=== PATIENT | female | born 1985 | race Caucasian/White ===

== ENCOUNTER → 2017-12-06 16:07 | Outpatient (CLI) | payer OTHER, SELFPAY ==
[2017-12-06 16:39] LABS: Add Manual Diff / Slide Review NO; Basophils Percent Auto 0.6 % (0-2); Eosinophils Percent Auto 0.9 % (2-4); Hematocrit 40.8 % (36-46); Hemoglobin 14.2 g/dL (12.0-16.0); Lymphocytes Percent Auto 22.6 % (25-40); Mean Corpuscular HGB Conc 34.8 % (30-36); Mean Corpuscular Volume 97.6 fL (80-100); Monocytes Percent Auto 6.4 % (3-14); Neutrophils Absolute Auto 7600 /uL (3000-5900); Neutrophils Percent Auto 69.5 % (50-75); Platelet Count 295 X10^3/uL (150-400); Red Blood Cell Count 4.17 X10^6/uL (4.0-5.2); Red Cell Distribution Width 12.5 % (11.6-14.8); White Blood Cell Count 10.9 X10^3/uL (4.5-11.0)
[2017-12-06 18:11] LABS: HIV 1 and 2 Antibody NEGATIVE (NEGATIVE); Hep C Virus Ab w/Reflex Quant NEGATIVE s/c (NEGATIVE); Hepatitis B Surface Antigen NEGATIVE s/c (NEGATIVE); Rubella Antibody IgG 40.2 IU/mL (>15)
[2017-12-08 14:06] LABS: HSV 2 IGG AB < 0.90 index (< 0.90)
[2017-12-13 10:33] LABS: Rapid Plasma Reagin NON-REACTIVE
== END ==
PROVIDERS: Family Provider Family Medicine; PCP Family Medicine; Visit Provider Obstetrics & Gynecology
DX: Z34.91 Encounter for supervision of normal pregnancy, unspecified, first trimester (principal)
CPT/HCPCS: 36415; 80055; 86695; 86696; 86703; 86787; 86803; 86850; 86900; 86901; 87077; 87086

== ENCOUNTER → 2018-01-05 11:38 | Outpatient (CLI) | payer OTHER, SELFPAY ==
[2018-01-05 16:25] LABS: Urine N gonorrhoeae NOT DETECTED
[2018-01-05 16:35] LABS: Urine Chlamydia NOT DETECTED
== END ==
PROVIDERS: Family Provider Family Medicine; PCP Family Medicine; Visit Provider Obstetrics & Gynecology
DX: Z11.3 Encounter for screening for infections with a predominantly sexual mode of transmission (principal); Z11.8 Encounter for screening for other infectious and parasitic diseases
CPT/HCPCS: 87491; 87591

== ENCOUNTER → 2018-02-02 12:59 | Outpatient (CLI) | payer OTHER, SELFPAY ==
[2018-02-07 14:19] LABS: AFP, Serum 36.4 ng/mL; Calc Gestational Age 17.6; Cigarette Smoker N; Donated Egg NOT GIVEN; Donor Egg Age NOT GIVEN; Estriol, Free 1.03 ng/mL; Inhibin A, Dimeric 92 pg/mL; Maternal Weight 192 lbs; Number of Fetuses NOT GIVEN; Previous Pregnancy Down Syndro NOT GIVEN; hCG, MoM 0.77; hCG, Serum 17.1 IU/mL
== END ==
PROVIDERS: PCP Family Medicine; Visit Provider Obstetrics & Gynecology
DX: Z34.02 Encounter for supervision of normal first pregnancy, second trimester (principal); Z3A.17 17 weeks gestation of pregnancy
CPT/HCPCS: 36415; 82105; 82677; 84702; 86336

== ENCOUNTER → 2018-03-04 12:51 | Outpatient (CLI) | payer OTHER, SELFPAY ==
--- NOTE | 2018-03-04 12:53 | DI.US.S_ITS ---
PROCEDURE: US OB >= 14 WEEKS FETUS INDICATIONS: ANATOMY OUTSIDE/PRIOR DATING DATA: Last menstrual period (LMP): 10/02/17. LMP-based estimated date of delivery (LEVY): 07/09/18 First dating scan (date and location): 12/06/17 Estimated date of delivery (LEVY) from first dating scan: 07/12/18 TECHNIQUE: Real-time scanning was performed of the fetus, with image documentation and biometric measurements. Endovaginal scanning: None COMPARISON: [facility], , OB >= 14 WEEKS FETUS, 02/02/2018, 12:51. FINDINGS: General: A single living intrauterine gestation is present. Presentation: Vertex Placenta: Placental position is anterior, without previa. Amniotic fluid index: 13.3 cm, normal range is 5-24 cm. heart rate: 139 beats per minute. Maternal cervical canal: 3.9 cm long. Normal lower limit is 2.5 cm. Simple cyst is noted in left ovary measures 4.6 x 3.7 x 3.8 cm in size. No adnexal masses seen. Right ovary is within normal limits. biometrics: Biparietal diameter: 5 cm, 21 weeks zero day Head circumference: 18.4 cm, 20 weeks six-day Abdominal circumference: 16.5 cm 21 weeks and 4 day Femur length: 3.5 cm, 21 week one day Estimated gestational age from initial scan: 21 week 3 days Composite gestational age from present scan: 21 weeks zero Estimated weight and percentile: 411 g, 36% Measurement variability for biometric dating: +/- 7 days from 14 weeks to 15 weeks 6 days gestation, +/- 10 days from 16 weeks to 21 weeks 6 days gestation, +/- 2 weeks from 22 weeks to 27 weeks 6 days gestation, +/- 3 weeks for 28 weeks gestation or later. weight reference: 4500 g or EFW >90/95% is considered macrosomia or large for gestational age. EFW <10% is small for gestational age. EFW 5% or less is considered intra-uterine growth restriction. Anatomic survey: Neuro: Ventricles are non-dilated at less than 10 mm. Cisterna magna is normal at 3-11 mm. Cerebellum is normal in size and morphology. Nuchal skin fold: Normal at less than 6 mm between 14-21 weeks gestational age. Face: Nose and lips, facial profile are normal. Spine: No evidence for spina bifida. Heart: 4-chambered heart is present, with normal ventricular outflow tracts. Diaphragm: Diaphragm is intact. Stomach: Left-sided stomach is present. Kidneys: No hydronephrosis. Normal is less than 5 mm in 2nd trimester, less than 7 mm in 3rd trimester. Cord: 3-vessel cord has orthotopic insertion. Bladder: Normal in size. Extremities: All 4 extremities identified. IMPRESSION: 1. Single live intrauterine with fetus in vertex presentation. heart rate is 139 beats per minute. 2. Normal growth. No gross abnormality is seen in anatomy. 3. Simple cyst in left ovary. Dictated by: Kyle Dutta M.D. on 03/04/2018 at 14:36 Approved by: Kyle Dutta M.D. on 03/04/2018 at 14:40
== END ==
PROVIDERS: PCP Family Medicine; Visit Provider Obstetrics & Gynecology
DX: O34.82 Maternal care for other abnormalities of pelvic organs, second trimester (principal); N83.292 Other ovarian cyst, left side; Z36.89 Encounter for other specified antenatal screening; Z3A.21 21 weeks gestation of pregnancy
CPT/HCPCS: 76811

== ENCOUNTER → 2018-03-06 12:31 | Outpatient (CLI) | payer OTHER, SELFPAY ==
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
[2018-03-06 13:06] LABS: Appearance Urine UA CLEAR; Bilirubin Urine UA NEGATIVE (NEGATIVE); Color Urine UA YELLOW; Glucose Urine UA NEGATIVE (Normal); Ketones Urine UA NEGATIVE (NEGATIVE); Leukocyte Esterase Urine UA NEGATIVE (NEGATIVE); Nitrite Urine UA Negative (Negative); Occult Blood Urine UA TRACE-LYSED (Negative); Protein Urine UA NEGATIVE (Negative); Specific Gravity Urine UA <=1.005 (1.000-1.035); Urobilinogen Urine UA 0.2 E.U./dL (0.2)
[2018-03-06 13:12] LABS: Bacteria Urine Moderate (10-30); Culture Indicated Urine Specimen Cultured; RBC Urine 0-1/HPF (0-5/HPF); WBC Urine 0-1/HPF (0-5/HPF)
== END | disposition home or self-care (01) ==
PROVIDERS: PCP Family Medicine; Visit Provider Specialist
DX: Z34.82 Encounter for supervision of other normal pregnancy, second trimester (principal); Z3A.22 22 weeks gestation of pregnancy; O46.92 Antepartum hemorrhage, unspecified, second trimester
CPT/HCPCS: 59025; 81001; 87086; G0378; G0379

== ENCOUNTER → 2018-04-27 12:44 | Outpatient (CLI) | payer OTHER, SELFPAY ==
[2018-04-27 14:38] LABS: Hemoglobin 13.5 g/dL (12.0-16.0)
[2018-04-27 15:15] LABS: GTT (PREG) 1 Hour PP 50gm Dose 133 mg/dL (76-139)
== END ==
PROVIDERS: PCP Family Medicine; Visit Provider Obstetrics & Gynecology
DX: Z34.92 Encounter for supervision of normal pregnancy, unspecified, second trimester (principal)
CPT/HCPCS: 36415; 82950; 85014; 85018

== ENCOUNTER → 2018-06-08 08:45 | Outpatient (CLI) | payer OTHER, SELFPAY ==
[2018-06-09 16:27] LABS: Strep Grp B PCR NEG for Grp B Strep
== END ==
PROVIDERS: PCP Family Medicine; Visit Provider Obstetrics & Gynecology
DX: Z34.03 Encounter for supervision of normal first pregnancy, third trimester (principal)
CPT/HCPCS: 87653

== ENCOUNTER 2018-06-28 10:32 | Outpatient (CLI) | payer OTHER, SELFPAY ==
[2018-06-28 11:03] LABS: Add Manual Diff / Slide Review NO; Basophils Absolute Auto 100 /uL (0-100); Eosinophils Absolute Auto 100 /uL (0-450); Hematocrit 40.6 % (36-46); Lymphocytes Absolute Auto 2300 /uL (1100-4500); Lymphocytes Percent Auto 20.2 % (25-40); Mean Corpuscular HGB Conc 34.5 % (30-36); Mean Corpuscular Hemoglobin 33.6 PG (26-34); Mean Corpuscular Volume 97.4 fL (80-100); Monocytes Absolute Auto 600 /uL (0-900); Monocytes Percent Auto 5.4 % (3-14); Neutrophils Absolute Auto 8200 /uL (1500-7000); Neutrophils Percent Auto 72.4 % (50-75); Platelet Count 280 X10^3/uL (150-400); Red Blood Cell Count 4.17 X10^6/uL (4.0-5.2); Red Cell Distribution Width 12.3 % (11.6-14.8); White Blood Cell Count 11.3 X10^3/uL (4.5-11.0)
[2018-06-28 11:16] LABS: Aspartate Aminotransferase 29 IU/L (14-36); BUN Creatinine Ratio 13.3 (6-22); Blood Urea Nitrogen 8 mg/dL (7-17); Estimated Glomerular Filt Rate > 60.0 mL/min (>60); Uric Acid 3.4 mg/dL (2.5-6.2)
== END 2018-06-28 11:35 | disposition home or self-care (01) ==
LOC: LABOR 11:35 → OB 06-29 16:48
PROVIDERS: PCP Family Medicine; Visit Provider Obstetrics & Gynecology
DX: Z34.03 Encounter for supervision of normal first pregnancy, third trimester (principal); Z3A.38 38 weeks gestation of pregnancy
CPT/HCPCS: 36415; 59025; 84450; 84550; 85025; G0378; G0379

== ENCOUNTER 2018-06-30 11:39 | Outpatient (CLI) | payer OTHER, SELFPAY | END 2018-06-30 12:42 | disposition home or self-care (01) | LOC: LABOR 12:42 → OB 07-01 14:14 | PROVIDERS: PCP Family Medicine; Visit Provider Obstetrics & Gynecology | DX: Z03.71 Encounter for suspected problem with amniotic cavity and membrane ruled out (principal); Z3A.38 38 weeks gestation of pregnancy | CPT/HCPCS: 59025; 84112; G0378; G0379 ==

== ENCOUNTER 2018-07-12 17:43 | Inpatient (IN) | payer OTHER, SELFPAY ==
[2018-07-12] MEDS: miSOPROStol 25 MCG TABLET VAG (18:45)
[2018-07-12 19:27] LABS: Add Manual Diff / Slide Review NO; Basophils Absolute Auto 100 /uL (0-100); Basophils Percent Auto 0.5 % (0-2); Eosinophils Absolute Auto 200 /uL (0-450); Eosinophils Percent Auto 1.3 % (2-4); Hematocrit 38.8 % (36-46); Hemoglobin 13.4 g/dL (12.0-16.0); Lymphocytes Absolute Auto 2200 /uL (1100-4500); Lymphocytes Percent Auto 18.1 % (25-40); Mean Corpuscular HGB Conc 34.4 % (30-36); Mean Corpuscular Hemoglobin 33.7 PG (26-34); Mean Corpuscular Volume 97.7 fL (80-100); Monocytes Absolute Auto 600 /uL (0-900); Monocytes Percent Auto 5.2 % (3-14); Neutrophils Absolute Auto 9200 /uL (1500-7000); Neutrophils Percent Auto 74.9 % (50-75); Platelet Count 304 X10^3/uL (150-400); Red Blood Cell Count 3.97 X10^6/uL (4.0-5.2); Red Cell Distribution Width 12.3 % (11.6-14.8); White Blood Cell Count 12.3 X10^3/uL (4.5-11.0)
[2018-07-12 21:07] VITALS: BP 126/85
[2018-07-13] MEDS: miSOPROStol 25 MCG TABLET VAG (02:24)
[2018-07-13] MEDS: OXYTOCIN PREMIX 30 UNIT/500 ML PLAST..BAG IV (08:04)
[2018-07-13] MEDS: LACTATED RINGERS 1,000 ML 100 ML IV ×2 (08:04→15:59)
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
--- NOTE | 2018-07-13 21:50 | PM.OBPRVD ---
Delivery date: 07/13/18 Intrapartal events: None Cervical ripening method: per misoprostal protocol Induction method: per pitocin protocol Delivery augmentation: rupture of membranes Delivery monitor: external FHT and external uterine Route of delivery: Episiotomy description: None L&D Laceration Description: Vaginal - 1st Degree and Superficial (Right/left labial) Delivery repair: chromic Estimated blood loss (mL): 250 Anesthesia type: Local Complications: None Narrative: Patient complete and pushed x 15 minutes. At 2034, a live male delivered spontaneously over an intact perineum. Nuchal cord x1 reduced on the perineum. The remainder of the body delivered without difficulty and placed on mom's abdomen. After cord stopped pulsing, it was double-clamped and cut. The placenta delivered intact with 3-vessel cord at 2109. Pitocin given in the IVF's. Superficial labial lacerations and 1 degree vaginal lacerations repaired in the usual fashion. Hemostasis achieved. EBL 250cc. Apgars 9at 1 minute and 9 at 5 minutes. Local anesthesia only for repair. . Mom and stable to recovery. Plan for aftercare: To routine care
[2018-07-13] MEDS: DERMOPLAST SPRAY 20% 60 ML 1 SPRAY TOP (23:44)
[2018-07-13] MEDS: LANOLIN OINT 7 GM 1 APPLIC TOP (23:45)
[2018-07-13] MEDS: IBUPROFEN 600 MG TABLET PO (23:45)
[2018-07-14 06:28] LABS: Hematocrit 35.6 % (36-46); Hemoglobin 12.5 g/dL (12.0-16.0)
[2018-07-14] MEDS: IBUPROFEN 600 MG TABLET PO ×2 (11:19→17:49)
[2018-07-14] MEDS: DOCUSATE 250 MG CAPSULE PO (11:19)
--- NOTE | 2018-07-14 17:45 | P.DS_ITS ---
Discharge Providers Date of admission: 07/12/18 17:43 Primary care physician: Katie Santos DO Consults: 07/13/18 22:38 Consult to Loader Unloader Routine Comment: Discharge provider: Clara Espinosa MD Discharge Date: 07/14/18 Summary Date Patient Seen: 07/14/18 Time Patient Seen: 11:00 Hospital Course: Patient is a 32-year-old 1 para 1 who presented for cervical ripening and induction of labor at 40 and 4 7th weeks gestation. She received 2 doses of Cytotec on 07/12/2018. Pitocin was started on the morning of 07/13/2018. Artificial rupture membranes was performed at 10:30 a.m.. She progressed into active labor. She had a spontaneous vaginal delivery at 8:35 p.m.. Minor lacerations. Her course was unremarkable. Peripartum Data Infant Delivery Method: Natural Vaginal Laceration description: Superficial (Bilateral labial) Episiotomy description: None Procedures: Cytotec cervical ripening Pitocin induction of labor Spontaneous vaginal delivery Bilateral labial and vaginal laceration repair complications: none Discharge Diagnosis (1) 40 weeks gestation of : Status: Acute (2) Elective induction of labor planned: Status: Acute (3) Normal spontaneous vaginal delivery: Status: Acute Status at Discharge Functional status at discharge: independent ambulation Overall status at discharge: patient is progressing back to baseline Time Spent with Patient Total time spent providing and/or coordinating discharge services: Less than 30 minutes Objective Labs Result Diagrams: 07/14/18 06:10 Labs: Laboratory Results - last 24 hr 07/14/18 06:10 Hgb 12.5 Hct 35.6 L Discharge Plan Discharge Plan Patient Disposition: Home Discharge Med Rec/Prescriptions Follow up/Referrals: Clara Espinosa MD [Physician] - 6 Weeks (F/U with Dr. Espinosa on August 24 at 1215 PM. F/U appt with JAMIE Garnica on , 07/21/2018 at 11:00 AM.) Castillo Mahoney MD [Physician] - () Katie Santos DO [Primary Care Provider] - Visit Report/Discharge Packet Instructions: DI for Labor and Delivery, Vaginal , DI for Frenulum Laceration in the Mouth Stand Alone Forms: Discharge: Care Visit Report Forms: Stroke Signs & Symptoms Discharge Data Primary Care Provider: Katie Santos Attending Provider: Clara Espinosa Admit Date/Time: 07/12/18 17:43
[2018-07-14 19:16] VITALS: BP 129/91; PULSE 91; RESP 16; TEMP 36.3
== END 2018-07-14 20:11 | disposition home or self-care (01) | DRG 807 ==
PROVIDERS: Admitting Provider Obstetrics & Gynecology; PCP Family Medicine; Visit Provider Obstetrics & Gynecology
DX: O48.0 Post-term pregnancy (principal); Z37.0 Single live birth; O69.81X0 Labor and delivery complicated by cord around neck, without compression, not applicable or unspecified; Z3A.40 40 weeks gestation of pregnancy; O70.0 First degree perineal laceration during delivery
CPT/HCPCS: 36415; 59050; 59400; 85014; 85018; 85025; 86850; 86900; 86901; G0379; J2590

== ENCOUNTER → 2018-08-12 14:38 | Outpatient (CLI) | payer OTHER, SELFPAY ==
[2018-08-12 15:10] LABS: Add Manual Diff / Slide Review NO; Basophils Absolute Auto 100 /uL (0-100); Basophils Percent Auto 0.9 % (0-2); Eosinophils Absolute Auto 200 /uL (0-450); Eosinophils Percent Auto 3.3 % (2-4); Hematocrit 41.1 % (36-46); Hemoglobin 13.9 g/dL (12.0-16.0); Lymphocytes Absolute Auto 2200 /uL (1100-4500); Lymphocytes Percent Auto 36.1 % (25-40); Mean Corpuscular HGB Conc 33.9 % (30-36); Mean Corpuscular Hemoglobin 32.6 PG (26-34); Mean Corpuscular Volume 96.2 fL (80-100); Monocytes Absolute Auto 400 /uL (0-900); Monocytes Percent Auto 6.6 % (3-14); Neutrophils Absolute Auto 3200 /uL (1500-7000); Neutrophils Percent Auto 53.1 % (50-75); Platelet Count 330 X10^3/uL (150-400); Red Blood Cell Count 4.27 X10^6/uL (4.0-5.2); Red Cell Distribution Width 12.2 % (11.6-14.8); White Blood Cell Count 6.1 X10^3/uL (4.5-11.0)
[2018-08-12 15:45] LABS: Prolactin 110.7 ng/mL (3.0-18.6)
[2018-08-12 15:59] LABS: TSH w/ Reflex to FT4 1.98 uIU/mL (0.47-4.68)
== END ==
PROVIDERS: PCP Family Medicine; Visit Provider Family Medicine
DX: Z39.1 Encounter for care and examination of lactating mother (principal)
CPT/HCPCS: 36415; 84146; 84443; 85025

== ENCOUNTER → 2019-05-03 15:41 | Outpatient (CLI) | payer OTHER, SELFPAY | PROVIDERS: PCP Family Medicine | DX: Z23 Encounter for immunization (principal) | CPT/HCPCS: 90471; 90686 ==

== ENCOUNTER → 2020-03-29 14:16 | Outpatient (CLI) | payer OTHER, SELFPAY ==
[2020-03-31 01:00] LABS: COVID19 Sendout Not Detected (Not Detect)
== END ==
PROVIDERS: PCP Family Medicine; Visit Provider Physician Assistant
DX: Z11.59 Encounter for screening for other viral diseases (principal)
CPT/HCPCS: 87635

== ENCOUNTER → 2020-05-22 15:19 | Outpatient (CLI) | payer OTHER, SELFPAY ==
[2020-05-22 15:47] LABS: Add Manual Diff / Slide Review NO; Basophils Absolute Auto 0 /uL (0-100); Basophils Percent Auto 0.4 % (0-2); Eosinophils Absolute Auto 100 /uL (0-450); Eosinophils Percent Auto 0.8 % (2-4); Hematocrit 39.6 % (36-46); Hemoglobin 14.2 g/dL (12.0-16.0); Lymphocytes Absolute Auto 2400 /uL (1100-4500); Lymphocytes Percent Auto 22.9 % (25-40); Mean Corpuscular HGB Conc 35.9 % (30-36); Mean Corpuscular Hemoglobin 34.6 PG (26-34); Mean Corpuscular Volume 96.5 fL (80-100); Monocytes Absolute Auto 500 /uL (0-900); Monocytes Percent Auto 5.2 % (3-14); Neutrophils Absolute Auto 7400 /uL (1500-7000); Neutrophils Percent Auto 70.7 % (50-75); Platelet Count 281 X10^3/uL (150-400); Red Blood Cell Count 4.11 X10^6/uL (4.0-5.2); Red Cell Distribution Width 12.8 % (11.6-14.8); White Blood Cell Count 10.5 X10^3/uL (4.5-11.0)
[2020-05-23 07:39] LABS: RPR Screen Non Reactive (Non Reactive)
[2020-05-23 10:08] LABS: Varicella IgG Antibody 518 index (Immune >165)
[2020-05-23 11:43] LABS: Hepatitis B Surface Antigen NEGATIVE s/c (NEGATIVE)
[2020-05-23 11:57] LABS: HIV 1 & 2 Ab/Ag 4th Gen Combo NEGATIVE (NEGATIVE); Hep C Virus Ab w/Reflex Quant NEGATIVE s/c (NEGATIVE)
[2020-05-25 18:57] LABS: AFP, Serum 29.1 ng/mL (.); Inhibin A, Dimeric 84.43 pg/mL (.); Maternal Ethnicity Caucasian (.); Maternal Weight 200 lbs (.); Number of Fetuses No (.); OSBR Risk 1 IN 10000 (.); Results Report (.); Test Results *Screen Negative* (.); hCG, MoM 0.78 (.); hCG, Serum 27002 mIU/mL (.)
== END ==
PROVIDERS: PCP Family Medicine; Referring Provider Obstetrics & Gynecology; Visit Provider Obstetrics & Gynecology
DX: Z34.82 Encounter for supervision of other normal pregnancy, second trimester (principal); Z3A.16 16 weeks gestation of pregnancy
CPT/HCPCS: 36415; 80055; 82105; 82677; 84702; 86336; 86787; 86803; 86850; 86900; 86901; 87389

== ENCOUNTER → 2020-06-18 09:37 | Outpatient (CLI) | payer OTHER, SELFPAY ==
--- NOTE | 2020-06-18 09:38 | DI.US.S_ITS ---
PROCEDURE: US OB >= 14 WEEKS FETUS INDICATIONS: Anatomy scan OUTSIDE/PRIOR DATING DATA: Last menstrual period (LMP): 01/31/20. LMP-based estimated date of delivery (LEVY): 11/06/20 . First dating scan (date and location): 04/02/[address] Espinosa . Estimated date of delivery (LEVY) from first dating scan: 11/11/20 . TECHNIQUE: Real-time scanning was performed of the fetus, with image documentation and biometric measurements. Endovaginal scanning: Not needed [facility]PARISON: [facility], , OB >= 14 WEEKS FETUS, 05/22/2020, 15:09. [facility], , OB >= 14 WEEKS FETUS, 04/27/2018, 14:30. FINDINGS: General: A single living intrauterine gestation is present. Presentation: Variable. Placenta: Placental position is posterior , without previa. Amniotic fluid index: 13.3 cm, normal range is 5-24 cm. heart rate: 152 beats per minute. Maternal cervical canal: 5.5 cm long. Normal lower limit is 2.5 cm. biometrics: Biparietal diameter: 4.6 cm, 19 weeks 6 days Head circumference: 17.2 cm, 19 weeks 5 days Abdominal circumference: 14.9 cm, 20 weeks 1 day Femur length: 3.2 cm, 20 weeks 0 days Estimated gestational age from initial scan: 19 weeks 1 day. Composite gestational age from present scan: 20 weeks 0 days Estimated weight and percentile: 328 g, 91st percentile Measurement variability for biometric dating: +/- 7 days from 14 weeks to 15 weeks 6 days gestation, +/- 10 days from 16 weeks to 21 weeks 6 days gestation, +/- 2 weeks from 22 weeks to 27 weeks 6 days gestation, +/- 3 weeks for 28 weeks gestation or later. weight reference: 4500 g or EFW >90/95% is considered macrosomia or large for gestational age. EFW <10% is small for gestational age. EFW 5% or less is considered intra-uterine growth restriction. Anatomic survey: Neuro: Ventricles are non-dilated at less than 10 mm. Cisterna magna is normal at 3-11 mm. Cerebellum is normal in size and morphology. Nuchal skin fold: Normal at less than 6 mm between 14-21 weeks gestational age. Face: Nose and lips, facial profile are normal. Spine: No evidence for spina bifida. Heart: 4-chambered heart is present, with normal ventricular outflow tracts. Diaphragm: Diaphragm is intact. Stomach: Left-sided stomach is present. Kidneys: No hydronephrosis. Normal is less than 5 mm in 2nd trimester, less than 7 mm in 3rd trimester. Cord: 3-vessel cord has orthotopic insertion. Bladder: Normal in size. Extremities: All 4 extremities identified. IMPRESSION: Appropriate interval growth, no anomaly seen. The delivery date is projected to be centered on 11/11/20. Dictated by: Manolo Cifuentes M.D. on 06/18/2020 at 13:39 Approved by: Manolo Cifuentes M.D. on 06/18/2020 at 13:41
== END ==
PROVIDERS: PCP Family Medicine; Referring Provider Obstetrics & Gynecology; Visit Provider Obstetrics & Gynecology
DX: Z34.82 Encounter for supervision of other normal pregnancy, second trimester (principal); Z3A.20 20 weeks gestation of pregnancy
CPT/HCPCS: 76811

== ENCOUNTER → 2020-08-14 09:38 | Outpatient (CLI) | payer OTHER, SELFPAY ==
[2020-08-16 00:56] LABS: Chlamydia trachomatis NAA Negative (Negative); Neisseria gonorrhoeae NAA Negative (Negative)
== END ==
PROVIDERS: PCP Family Medicine; Visit Provider Obstetrics & Gynecology
DX: Z34.82 Encounter for supervision of other normal pregnancy, second trimester (principal); Z3A.28 28 weeks gestation of pregnancy
CPT/HCPCS: 87491; 87591

== ENCOUNTER → 2020-08-14 10:07 | Outpatient (CLI) | payer OTHER, SELFPAY ==
[2020-08-14 12:15] LABS: Hematocrit 37.8 % (36-46)
[2020-08-14 12:25] LABS: GTT (PREG) 1 Hour PP 50gm Dose 106 mg/dL (76-139)
== END ==
PROVIDERS: PCP Family Medicine; Referring Provider Obstetrics & Gynecology; Visit Provider Obstetrics & Gynecology
DX: Z34.82 Encounter for supervision of other normal pregnancy, second trimester (principal); Z3A.26 26 weeks gestation of pregnancy
CPT/HCPCS: 82950; 85014; 85018; 87491; 87591

== ENCOUNTER → 2020-09-02 10:46 | Outpatient (CLI) | payer OTHER, SELFPAY ==
[2020-09-04 14:12] LABS: Chlamydia trachomatis NAA Negative (Negative); Neisseria gonorrhoeae NAA Negative (Negative)
== END ==
PROVIDERS: PCP Family Medicine; Visit Provider Obstetrics & Gynecology
DX: Z34.83 Encounter for supervision of other normal pregnancy, third trimester (principal); Z3A.30 30 weeks gestation of pregnancy
CPT/HCPCS: 87491; 87591

== ENCOUNTER → 2020-09-26 19:57 | Outpatient (ROUT) | payer OTHER, SELFPAY ==
[2020-09-26 21:40] LABS: Urine N gonorrhoeae NOT DETECTED
[2020-09-26 21:43] LABS: Urine Chlamydia NOT DETECTED
== END ==
PROVIDERS: PCP Family Medicine; Visit Provider Obstetrics & Gynecology
DX: Z34.83 Encounter for supervision of other normal pregnancy, third trimester (principal); Z3A.34 34 weeks gestation of pregnancy
CPT/HCPCS: 87491; 87591

== ENCOUNTER → 2020-10-08 16:43 | Outpatient (CLI) | payer OTHER, SELFPAY ==
[2020-10-09 13:49] LABS: Strep Grp B PCR NEG for Grp B Strep
== END ==
PROVIDERS: PCP Family Medicine; Visit Provider Obstetrics & Gynecology
DX: Z34.83 Encounter for supervision of other normal pregnancy, third trimester (principal); Z3A.35 35 weeks gestation of pregnancy
CPT/HCPCS: 87653

== ENCOUNTER 2020-11-04 20:21 | Outpatient (CLI) | payer OTHER, SELFPAY | END 2020-11-04 21:00 | disposition home or self-care (01) | LOC: OB 11-05 09:39 | PROVIDERS: PCP Family Medicine; Referring Provider Obstetrics & Gynecology; Visit Provider Obstetrics & Gynecology | DX: O47.1 False labor at or after 37 completed weeks of gestation (principal); Z3A.39 39 weeks gestation of pregnancy | CPT/HCPCS: 59025; G0378; G0379 ==

== ENCOUNTER 2020-11-05 07:01 | Inpatient (IN) | payer OTHER, SELFPAY ==
[2020-11-05] MEDS: LACTATED RINGERS 1,000 ML 100 ML IV ×2 (08:41→12:41)
[2020-11-05] MEDS: OXYTOCIN PREMIX 30 UNIT/500 ML PLAST..BAG IV (08:42)
[2020-11-05 09:08] LABS: Add Manual Diff / Slide Review NO; Basophils Absolute Auto 0 /uL (0-100); Basophils Percent Auto 0.4 % (0-2); Eosinophils Absolute Auto 0 /uL (0-450); Eosinophils Percent Auto 0.5 % (2-4); Hematocrit 38.1 % (36-46); Hemoglobin 13.4 g/dL (12.0-16.0); Lymphocytes Absolute Auto 1900 /uL (1100-4500); Mean Corpuscular HGB Conc 35.2 % (30-36); Mean Corpuscular Hemoglobin 34.3 PG (26-34); Mean Corpuscular Volume 97.3 fL (80-100); Monocytes Absolute Auto 600 /uL (0-900); Monocytes Percent Auto 6.7 % (3-14); Neutrophils Absolute Auto 6600 /uL (1500-7000); Neutrophils Percent Auto 71.4 % (50-75); Platelet Count 279 X10^3/uL (150-400); Red Blood Cell Count 3.92 X10^6/uL (4.0-5.2); Red Cell Distribution Width 12.3 % (11.6-14.8); White Blood Cell Count 9.2 X10^3/uL (4.5-11.0)
[2020-11-05 09:59] LABS: COVID19 - ADMIT (NP swab/PCR) Negative (Negative)
[2020-11-05] MEDS: METOCLOPRAMIDE 10 MG/2 ML INJ IV (10:46)
[2020-11-05] MEDS: FENT 2MCG/ML BUPIV 0.125% EPI 200 MCG/100 ML PLAST..BAG 12 MCG EPIDURAL (12:20)
[2020-11-05] MEDS: fentaNYL 100 MCG/2 ML INJ (12:41)
[2020-11-05 13:40] VITALS: BP 122/86
[2020-11-05] MEDS: ACETAMINOPHEN 325 MG TABLET 650 MG PO (14:53)
[2020-11-05] MEDS: METHYLERGONOVINE 0.2 MG/ML VIAL IM (16:31)
[2020-11-05] MEDS: OXYTOCIN 10 UNIT/ML VIAL 20 UNIT (17:45)
[2020-11-05] MEDS: DERMOPLAST SPRAY 20% 60 ML 1 SPRAY TOP (21:42)
[2020-11-05] MEDS: IBUPROFEN 600 MG TABLET PO (21:43)
[2020-11-05] MEDS: LANOLIN OINT 7 GM 1 APPLIC TOP (21:43)
[2020-11-06] MEDS: IBUPROFEN 600 MG TABLET PO ×2 (04:42→12:00)
[2020-11-06 06:20] LABS: Hematocrit 35.8 % (36-46); Hemoglobin 12.2 g/dL (12.0-16.0)
[2020-11-06] MEDS: DOCUSATE 100 MG CAPSULE PO (08:14)
[2020-11-06 13:31] VITALS: BP 104/64; PULSE 70; RESP 16; TEMP 36.9
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
--- NOTE | 2020-11-18 06:48 | PM.OBPNLAB ---
Date/Time Date Patient Seen: 11/05/20 Time Patient Seen: 09:45 Pain Control Pain control: tolerating well Pelvic Exam Dilation (cm): 3 Effacement (%): 80 station: -1 Amniotic membrane status: Intact Contractions Contractions on admission: irregular Monitor mode: External Pitocin rate (mU/min): 3 Contraction frequency (min): 3 Contraction duration (min): 1 Contraction pattern: Regular Contraction intensity: Moderate Status status: Category l Heart Rate Baseline: 140 Monitor Accelerations: Present Monitor Decelerations: Absent Monitor Variability: Moderate Assessment and Plan Assessment: active labor and induction ongoing Plan: other (Artificial rupture membranes with clear amniotic fluid) Comments: Expected management to spontaneous vaginal delivery
--- NOTE | 2020-11-18 06:50 | PM.OBPRVD ---
Events: Induced HTN Labor & Delivery Delivery date: 11/05/20 Cervical ripening method: none Induction method: per pitocin protocol Delivery augmentation: rupture of membranes Delivery monitor: external FHT and external uterine Route of delivery: Episiotomy description: None L&D Laceration Description: Labial (Bilateral) and Superficial Delivery repair: chromic Estimated blood loss (mL): 150 Anesthesia Type: Epidural Complications: None Narrative: Patient complete and pushed for 10 minutes. At 3:15 p.m., a live male delivered spontaneously in the JAYLIN presentation over an intact perineum. No nuchal cord. The remainder of the body delivered without difficulty and was placed on mom's abdomen. The cord was double clamped and cut after it stopped pulsing. Cord bloods were obtained. The placenta delivered intact with a three-vessel cord at 3:30 p.m.. Pitocin was given in the IV fluids after the cord was double clamped and cut. Fundus was massaged to firm. Bilateral superficial labial lacerations were repaired with 4-0 chromic. Hemostasis was achieved. Estimated blood loss 150 cc. Apgars 9 at 1 minute and 9 at 5 minutes. Weight 6 lb 11 oz. epidural analgesia. . Mom and stable to recovery. Baby 1: gender: Male Presentation: vertex Position: Left Occiput Anterior Placenta delivery description: Spontaneous Cord Vessel Description: 3 Vessels score (1 min): 9 score (5 min): 9 weight: 6 lb 11 oz Plan for aftercare: Routine care
--- NOTE | 2020-11-18 06:54 | PM.OBDS.1 ---
Discharge Providers Provider Date of admission: 11/05/20 07:01 Discharge Date: 11/06/20 Primary care physician: Katie Santos, DO Discharge provider: Clara Espinosa MD Summary Hospital Course Date Patient Seen: 11/06/20 Time Patient Seen: 09:30 Diagnoses: Intrauterine at 39 and 6 7th weeks gestation Gestational hypertension Induction of labor with Pitocin Artificial rupture of membranes Epidural analgesia Spontaneous vaginal delivery Bilateral superficial laceration and repair Hospital Course: Patient is a 34-year-old 2 para 2 who presented on November 05, 2020 for scheduled induction of labor. She was started on Pitocin and reached a max of 2 elyse IU per minute. Artificial rupture membranes was performed at 9:45 a.m. in the morning. She had clear amniotic fluid. She progressed to complete dilation and had a spontaneous vaginal delivery without complication. She had bilateral superficial labial lacerations which were repaired. Her course was unremarkable and she was discharged home on day # 1. Peripartum Data Delivery Method: Natural Vaginal Laceration Description: Labial (Bilateral) and Superficial Episiotomy description: None Procedures: Pitocin induction of labor Artificial rupture membranes Spontaneous vaginal delivery Epidural analgesia Bilateral superficial labial laceration repair complications: none [place] 1: Gender: Male Disposition of : home Status at Discharge Cognitive/behavioral status at discharge: oriented Functional status at discharge: independent ambulation Overall status at discharge: patient is progressing back to baseline Time Spent with Patient Time attestation: Total time spent providing and/or coordinating discharge services: Time spent: Less than 30 minutes Objective Labs Result Diagrams: 11/06/20 06:00 Exam Vital Signs (past 8 hours): Generally: Patient is sitting up in bed, holding infant, no acute distress Fundus: Firm at U -1 Extremities: 1+ edema, negative Homans Discharge Plan Discharge Plan Patient Disposition: Home Discharge orders & Medications Prescriptions: Continued prenat.vits,josue,[id number] Tablet 1 tab PO DAILY Qty: 90 RF: 3 azelastine 0.15 % (205.5 mcg) spray,non-aerosol 1 spray NASAL PRN PRN (Reason: Allergic Symptoms) RF: 0 No Action (DME) Massage Therapy See Rx Instructions .Route .MEDSUPPLY Qty: 1 RF: 0 Follow up/Referrals: Clara Espinosa MD [Physician] - 6 Weeks (Appointment with on Wednesday, January 17 at 2:30pm) Diet/Activity/Treatments Diet: Regular Activity: Nothing in the vagina for 6 weeks Skin/Wound/Dressing Care Report to your healthcare provider any signs of infection, such as:: chills, fever, increased pain and unusual drainage Visit Report/Discharge Packet Instructions: DI for Labor and Delivery, Vaginal Discharge Data Primary Care Provider: Katie Santos
== END 2020-11-06 15:40 | disposition home or self-care (01) | DRG 807 ==
PROVIDERS: Admitting Provider Obstetrics & Gynecology; PCP Family Medicine; Referring Provider Obstetrics & Gynecology; Visit Provider Obstetrics & Gynecology
DX: O13.4 Gestational [pregnancy-induced] hypertension without significant proteinuria, complicating childbirth (principal); Z37.0 Single live birth; O70.0 First degree perineal laceration during delivery; Z3A.39 39 weeks gestation of pregnancy
CPT/HCPCS: 01967; 36415; 59025; 59050; 59400; 85014; 85018; 85025; 86850; 86900; 86901; 87635; C9803; G0379; J2210; J2590; J2765; J3010

== ENCOUNTER → 2021-09-12 12:18 | Outpatient (CLI) | payer OTHER, SELFPAY ==
--- NOTE | 2021-09-12 12:20 | DI.RAD.S_ITS ---
PROCEDURE: XR KNEE RT 3V INDICATIONS: right knee pain TECHNIQUE: 3 views of the knee were acquired. COMPARISON: None. FINDINGS: Bones: No fractures or dislocations. No suspicious bony lesions. Soft tissues: No joint effusion. No suspicious soft tissue calcifications. IMPRESSION: No radiographic abnormalities. Dictated by: Janice Castillo M.D. on 09/12/2021 at 15:32 Approved by: Janice Castillo M.D. on 09/12/2021 at 15:39
== END ==
PROVIDERS: PCP Family Medicine; Referring Provider Family Medicine; Visit Provider Family Medicine
DX: M25.561 Pain in right knee (principal); Z98.890 Other specified postprocedural states
CPT/HCPCS: 73562

== ENCOUNTER → 2022-03-03 18:50 | Outpatient (CLI) | payer OTHER, SELFPAY ==
--- NOTE | 2022-03-03 18:53 | DI.MRI.S_ITS ---
PROCEDURE: MR KNEE RT WO CON INDICATIONS: R knee pain s/p hx of torn ACL/R knee surgery TECHNIQUE: Noncontrast sagittal PD fast spin echo and T2 fast spin echo with fat saturation, sagittal 3-D FLASH with fat saturation; coronal T1 spin echo and PD fast spin echo with fat saturation, and axial PD fast spin echo with fat saturation through the knee. COMPARISON: [facility], CR, XR KNEE RT 3V, 09/12/2021, 12:18. FINDINGS: Image quality: Excellent. Menisci: The medial and lateral menisci demonstrate normal morphology and internal signal. The meniscal root ligaments appear intact. Cruciate ligaments: The anterior and posterior cruciate ligaments appear intact. Medial structures: The medial collateral ligament appears intact. The semimembranosus tendon insertions and meniscocapsular junction appear intact. Visualized portions of the pes anserinus tendons appear normal. No abnormal bursal fluid. Lateral structures: The lateral collateral ligament and the biceps femoris tendon appear intact. The popliteus tendon appears normal. Iliotibial band appears normal. Anterior structures: The quadriceps and patellar tendons appear intact. Patellar alignment is normal. No femoral trochlear dysplasia or ventral trochlear prominence. No edema in the infrapatellar fat pad. Bones and cartilage: No bone marrow contusions or fractures. Mild cartilage fibrillation and small cartilage fissures in the patella. The overall cartilage thickness is preserved. Joint space: There is small knee joint effusion. No Elam's cyst. There is thickening of medial synovial plica. IMPRESSION: 1. 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 Please correlate with anterior medial knee pain. 2. No cruciate ligament tear or meniscal tear. 3. Mild cartilage fibrillation/fissuring in patella. Dictated by: Miguel Jarquin M.D. on 03/04/2022 at 9:05 Approved by: Miguel Jarquin M.D. on 03/04/2022 at 9:20
== END ==
PROVIDERS: PCP Pediatrics; Referring Provider Pediatrics; Visit Provider Pediatrics
DX: M25.561 Pain in right knee (principal); M25.461 Effusion, right knee; Z87.828 Personal history of other (healed) physical injury and trauma; Z98.890 Other specified postprocedural states
CPT/HCPCS: 73721

== ENCOUNTER → 2022-06-06 16:13 | Outpatient (CLI) | payer OTHER, SELFPAY | PROVIDERS: PCP Pediatrics; Referring Provider Internal Medicine; Visit Provider Internal Medicine | DX: Z23 Encounter for immunization (principal) | CPT/HCPCS: 90471; 90686 ==

== ENCOUNTER → 2023-03-06 14:00 | Outpatient (CLI) | payer OTHER, SELFPAY | PROVIDERS: PCP Nurse Practitioner; Referring Provider Family Medicine; Visit Provider Family Medicine | DX: Z23 Encounter for immunization (principal) | CPT/HCPCS: 90471; 90686 ==

== ENCOUNTER → 2023-04-13 10:29 | Outpatient (CLI) | payer OTHER, SELFPAY ==
[2023-04-13 12:49] LABS: Add Manual Diff / Slide Review NO; Basophils Absolute Auto 100 /uL (0-100); Eosinophils Absolute Auto 100 /uL (0-450); Eosinophils Percent Auto 1.9 % (2-4); Hematocrit 41.4 % (36-46); Hemoglobin 14.5 g/dL (12.0-16.0); Lymphocytes Absolute Auto 2200 /uL (1100-4500); Lymphocytes Percent Auto 35.3 % (25-40); Mean Corpuscular Hemoglobin 33.4 PG (26-34); Mean Corpuscular Volume 95.3 fL (80-100); Monocytes Absolute Auto 400 /uL (0-900); Monocytes Percent Auto 6.9 % (3-14); Neutrophils Absolute Auto 3400 /uL (1500-7000); Neutrophils Percent Auto 54.9 % (50-75); Platelet Count 304 X10^3/uL (150-400); Red Blood Cell Count 4.34 X10^6/uL (4.0-5.2); Red Cell Distribution Width 12.2 % (11.6-14.8); White Blood Cell Count 6.1 X10^3/uL (4.5-11.0)
[2023-04-13 13:30] LABS: Microalbumi Creatinin Ratio Ur 5.1 ug/mg CR (<30); Microalbumin Urine Random 0.7 mg/dL (0-1.6)
[2023-04-13 13:31] LABS: Alanine Aminotransferase 19 IU/L (<35); Albumin 4.3 g/dL (3.5-5.0); Albumin Globulin Ratio 1.3 (1.0-2.8); Alkaline Phosphatase 55 U/L (38-126); Aspartate Aminotransferase 23 IU/L (14-36); BUN Creatinine Ratio 19.7 (6-22); Bilirubin Total 0.7 mg/dL (0.2-1.3); Blood Urea Nitrogen 15 mg/dL (7-17); Calcium 9.4 mg/dL (8.4-10.2); Carbon Dioxide 23 mmol/L (22-32); Chloride 102 mmol/L (98-107); Cholesterol 183 mg/dL (140-199); Estimated Glomerular Filt Rate > 60 mL/min (>60); Globulin 3.3 g/dL (1.7-4.1); Glucose 88 mg/dL (70-100); HDL Cholesterol 55 mg/dL (40-60); HEMOLYSIS < 15 (0-50); LDL Cholesterol Calculated 115 mg/dL (<100); Potassium 4.1 mmol/L (3.4-5.1); Sodium 136 mmol/L (137-145); Total Protein 7.6 g/dL (6.3-8.2); Triglycerides 67 mg/dL (35-150)
[2023-04-13 13:55] LABS: Free T3, Triiodothyronine Free 3.58 pg/mL (2.77-5.27); Free T4, Direct Thyroxine 0.87 ng/dL (0.78-2.19)
[2023-04-13 14:09] LABS: Thyroid Stimulating Hormone 1.35 uIU/mL (0.47-4.68)
[2023-04-15 18:38] LABS: HIV 1 & 2 Ab/Ag 4th Gen Combo NEGATIVE (NEGATIVE); Hep C Virus Ab w/Reflex Quant NEGATIVE s/c (NEGATIVE)
== END ==
PROVIDERS: PCP Nurse Practitioner; Referring Provider Nurse Practitioner; Visit Provider Nurse Practitioner
DX: Z00.00 Encounter for general adult medical examination without abnormal findings (principal)
CPT/HCPCS: 36415; 80053; 80061; 82043; 82570; 84439; 84443; 84481; 85025; 86803; 87389